=== PATIENT | female | born 1955 | race Caucasian/White ===

== ENCOUNTER 2016-09-20 13:34 | Day surgery (SDC) | payer OTHER ==
[~2016-09-20] VITALS: Ht 157.5 cm; Wt 75.4 kg
[2016-09-20 14:11] VITALS: Ht 157.5 cm; Wt 75.4 kg
[2016-09-20] MEDS ORDERED: IBUPROFEN PO (14:37)
[2016-09-20] MEDS ORDERED: XANAX (14:37)
[2016-09-20 14:42] VITALS: BP 179/86; PULSE 64; RESP 14
[2016-09-20 15:58] VITALS: BP 154/71; RESP 20
--- NOTE | 2016-09-21 04:58 | GILP ---
DATE OF PROCEDURE: 09/20/2016 PREOPERATIVE DIAGNOSIS: Screening colonoscopy. POSTOPERATIVE DIAGNOSES: 1. Colonoscopy all the way to the cecum. Poor prep with solid stool scattered all over making the exam very poor and inadequate. 2. Internal hemorrhoids. PROCEDURE PERFORMED: Colonoscopy. SURGEON: Debi Bates MD. INDICATION FOR PROCEDURE: Ms. Gabriella Schwartz is a 60-year-old female patient who noticed a change in the bowel habits. She had a history of colon polyps. The patient needs a screening colonoscopy. The procedure and possible complications were well explained to the patient. She understood and consented to the procedure. DESCRIPTION OF PROCEDURE: Under the influence if anesthesia the colonoscope was carefully introduced in the rectum and under direct vision it was advanced all the way to the cecum. Findings, the patient had poor prep with solid stool scattered all around making the exam poor and inadequate. The patient was noted to have internal hemorrhoids. She tolerated the procedure very well and there was no complication from the procedure. At the end of procedure she was awake with stable vital signs and she was discharged home in the care of her family. IMPRESSION: 1. Colonoscopy all the way to the cecum. 2. Solid stool scattered all around making the exam poor and inadequate. 3. Internal hemorrhoids. PLAN: The patient will need a repeat colonoscopy with better preparation. Dictated By: MD ROBERT Londono/sintia/maurilio /Document#: [id number] CC: Debi Bates MD;*[facility]*
[2016-09-21] MEDS ORDERED: PROPOFOL 40 ML ONE (18:02)
[2016-09-21] MEDS ORDERED: LIDOCAINE 2% (SDV) 5 ML INJ ONE (18:02)
== END 2016-09-20 16:46 | disposition home or self-care (01) ==
LOC: GIL 13:34
PROVIDERS: ATTEND Internal Medicine Gastroenterology
DX: Z12.11 Encounter for screening for malignant neoplasm of colon (principal); K64.8 Other hemorrhoids; E66.01 Morbid (severe) obesity due to excess calories; Z68.30 Body mass index [BMI] 30.0-30.9, adult

== ENCOUNTER 2017-04-17 07:58 | Day surgery (SDC) | END 2017-04-17 10:55 | disposition home or self-care (01) ==